=== PATIENT | female | born 1960 | race Caucasian/White ===

== ENCOUNTER 2018-06-05 11:18 | Emergency (ER) | payer MEDICAID ==
[~2018-06-05] VITALS: Ht 160 cm; Wt 108.9 kg
[2018-06-05 13:09] VITALS: BP 159/83
== END 2018-06-05 15:13 | disposition home or self-care (01) ==
LOC: ER 11:18 → EDBD 11:18 → ER 15:13
DX: S20.212A Contusion of left front wall of thorax, initial encounter (principal); J44.9 Chronic obstructive pulmonary disease, unspecified; F17.210 Nicotine dependence, cigarettes, uncomplicated; Z88.5 Allergy status to narcotic agent; V49.59XA Passenger injured in collision with other motor vehicles in traffic accident, initial encounter; Y93.89 Activity, other specified; Y99.8 Other external cause status; Y92.488 Other paved roadways as the place of occurrence of the external cause
CPT/HCPCS: 71046; 93005

== ENCOUNTER 2018-09-20 16:30 | Emergency (ER) | payer MEDICAID ==
[~2018-09-20] VITALS: Ht 160 cm; Wt 108.9 kg
[2018-09-20 16:35] VITALS: BP 129/86
[2018-09-20 18:03] LABS: Basophils # (auto) 0 uL; Basophils % (auto) 0.5 % (0.0-2.0); Eosinophils # (auto) 0.2 uL; Eosinophils % (auto) 2.3 % (0.0-7.0); Hematocrit 40.8 % (36.0-46.0); Hemoglobin 13.5 g/dL (12.2-16.2); Lymphocytes % (auto) 11.8 % (10.0-50.0); Mean Corpuscular Hemoglobin 30.9 pg (28.0-32.0); Mean Corpuscular Volume 93.6 fL (80.0-100.0); Monocytes # (auto) 0.5 uL; Monocytes % (auto) 6.2 % (0.0-12.0); Neutrophils % (auto) 79.2 % (37.0-80.0); Nucleated Red Blood Cells % 0.1 %; Platelet Count (auto) 248 10^3/uL (140-450); Red Blood Cells 4.36 10^6/uL (4.0-5.20); White Blood Cell 8.8 10^3/uL (4.4-10.8)
[2018-09-20 18:16] LABS: Alanine Aminotransferase 16 U/L (13-56); Albumin 3.6 g/dL (3.4-5.0); Anion Gap 5 (5-15); Blood Urea Nitrogen 17 mg/dL (7-18); Calcium 8.4 mg/dL (8.5-10.1); Carbon Dioxide 27 mmol/L (21-32); Chloride 109 mmol/L (98-107); Glucose 117 mg/dL (74-106); Potassium 3.9 mmol/L (3.5-5.1); Sodium 141 mmol/L (136-145)
[2018-09-20 18:21] LABS: Alkaline Phosphatase 86 U/L (45-117); Aspartate Aminotransferase 12 U/L (15-37); BUN/Creatinine Ratio 16.2; Bilirubin, Total 0.2 mg/dL (0.2-1.0); GFR African American 69 mL/min; GFR Non-African American 57 mL/min; Total Protein 7.1 g/dL (6.4-8.2)
[2018-09-20] MEDS ORDERED: LORazepam 2MG/ML-1ML VIAL IM ONE (22:45)
[2018-09-20] MEDS ORDERED: LACTULOSE 20Gm/30ML SOLN PO ONE (22:45)
== END 2018-09-20 23:55 | disposition home or self-care (01) ==
LOC: ER 16:30 → EDBD 16:30 → ER 23:55
DX: F41.9 Anxiety disorder, unspecified (principal); F45.8 Other somatoform disorders; K59.00 Constipation, unspecified; J44.9 Chronic obstructive pulmonary disease, unspecified; F17.210 Nicotine dependence, cigarettes, uncomplicated; Z88.5 Allergy status to narcotic agent
CPT/HCPCS: 36415; 71045; 74018; 80053; 84484; 85025; 96372; 99284; J2060

== ENCOUNTER 2021-09-19 21:43 | Emergency (ER) | payer MEDICAID ==
[~2021-09-19] VITALS: Ht 160 cm; Wt 120.7 kg
[2021-09-19 23:02] LABS: Basophils # (auto) 0.1 10 ^3/uL (0-0.2); Basophils % (auto) 1.1 % (0.0-2.0); Eosinophils # (auto) 0.2 10 ^3/uL (0-0.8); Eosinophils % (auto) 2.9 % (0.0-7.0); Hematocrit 36.3 % (36.0-46.0); Lymphocytes # (auto) 1.6 10 ^3/uL (0.4-5.4); Lymphocytes % (auto) 20.2 % (10.0-50.0); Mean Corpuscular Hgb Conc. 33.1 g/dL (32.0-36.0); Mean Corpuscular Volume 87.5 fL (80.0-100.0); Monocytes # (auto) 0.7 10 ^3/uL (0-1.3); Monocytes % (auto) 8.6 % (0.0-12.0); Neutrophils # (auto) 5.2 10 ^3/uL (1.6-8.6); Neutrophils % (auto) 67.2 % (37.0-80.0); Red Blood Cells 4.15 10^6/uL (4.0-5.20); Red Cell Distribution Width 14.2 % (11.8-14.3); White Blood Cell 7.7 10^3/uL (4.4-10.8)
[2021-09-19 23:24] LABS: Calcium 8.4 mg/dL (8.5-10.1); Potassium 3.4 mmol/L (3.5-5.1)
[2021-09-19 23:30] LABS: BUN/Creatinine Ratio 13.2; Bilirubin, Total 0.2 mg/dL (0.2-1.0); Total Protein 6.4 g/dL (6.4-8.2)
[2021-09-19] MEDS ORDERED: SODIUM CHLORIDE 0.9% 1,000 ML IV ONE ×2 (23:30)
[2021-09-20 00:30] VITALS: BP 102/56
== END 2021-09-20 01:32 | disposition home or self-care (01) ==
LOC: EDBD 21:43 → ER 21:45
DX: I95.9 Hypotension, unspecified (principal); T46.5X5A Adverse effect of other antihypertensive drugs, initial encounter; F17.200 Nicotine dependence, unspecified, uncomplicated; J44.9 Chronic obstructive pulmonary disease, unspecified; R06.02 Shortness of breath; Z88.6 Allergy status to analgesic agent
CPT/HCPCS: 36415; 71045; 80053; 83880; 84484; 85025; 93005; 96360; 96361; 99285; J7030

== ENCOUNTER 2023-04-07 21:25 | Emergency (ER) | payer MEDICAID ==
[~2023-04-07] VITALS: Ht 160 cm; Wt 123.6 kg
[2023-04-08 01:42] LABS: Basophils # (auto) 0.1 10 ^3/uL (0-0.2); Eosinophils # (auto) 0.5 10 ^3/uL (0-0.8); Lymphocytes # (auto) 2.2 10 ^3/uL (0.4-5.4); Lymphocytes % (auto) 22.8 % (10.0-50.0); Neutrophils # (auto) 6.1 10 ^3/uL (1.6-8.6); White Blood Cell 9.5 10^3/uL (4.4-10.8)
[2023-04-08 01:44] LABS: Eosinophils % (auto) 5.4 % (0.0-7.0); Hematocrit 36.7 % (36.0-46.0); Hemoglobin 11.7 g/dL (12.2-16.2); Mean Corpuscular Hemoglobin 25.6 pg (28.0-32.0); Mean Corpuscular Hgb Conc. 31.7 g/dL (32.0-36.0); Mean Corpuscular Volume 80.8 fL (80.0-100.0); Monocytes # (auto) 0.6 10 ^3/uL (0-1.3); Monocytes % (auto) 6.8 % (0.0-12.0); Red Blood Cells 4.55 10^6/uL (4.0-5.20); Red Cell Distribution Width 16.5 % (11.8-14.3)
[2023-04-08 02:22] LABS: Albumin 3.4 g/dL (3.4-5.0); Calcium 8.4 mg/dL (8.5-10.1); Potassium 3.8 mmol/L (3.5-5.1)
[2023-04-08 02:25] LABS: BUN/Creatinine Ratio 13.7 (10.0-20.0)
[2023-04-08 02:35] LABS: Bilirubin, Total 0.2 mg/dL (0.2-1.0); Total Protein 7.7 g/dL (6.4-8.2)
[2023-04-08] MEDS ORDERED: cefTRIAXone SOD 1,000 MG VL IM ONE (04:15)
[2023-04-08 04:50] VITALS: BP 119/60
[2023-04-08] MEDS ORDERED: DOXY1CAP57 PO (05:04)
[2023-04-08] MEDS ORDERED: FLUC150T38 PO (05:04)
== END 2023-04-08 05:00 | disposition home or self-care (01) ==
LOC: ER 21:25
DX: B37.2 Candidiasis of skin and nail (principal); L03.90 Cellulitis, unspecified; D64.9 Anemia, unspecified; F41.9 Anxiety disorder, unspecified; F17.210 Nicotine dependence, cigarettes, uncomplicated; Z88.5 Allergy status to narcotic agent
CPT/HCPCS: 36415; 71045; 80053; 83880; 84484; 85025; 96372; 99284; J0696

== ENCOUNTER 2024-11-21 15:27 | Emergency (ER) | payer MEDICAID ==
[~2024-11-21] VITALS: Ht 160 cm; Wt 106.8 kg
[~2024-11-21 15:27] MED LIST: DOXY1CAP57 PO; FLUC150T38 PO
[2024-11-21 15:52] VITALS: BP 117/62; PULSE 96; RESP 20; O2SAT 95
[2024-11-21] MEDS ORDERED: CLAR1TAB21 PO (16:56)
[2024-11-21] MEDS ORDERED: CLOB0.055 TOP (16:56)
--- NOTE | 2024-11-21 16:56 | ED.PDOC ---
History of Present Illness(SKN HPI Comments Patient is a pleasant but severely morbidly obese 64-year-old female who arrives the ED today for evaluation of chronic skin concerns. Patient has had rashing underneath her breasts, in her groin and underneath the axilla as well as her belly for over a year. Patient was seen her primary care provider, web specialist and vulcan crewmember. Patient arrives today stating the treatment is not been successful. Patient can not recall all the medication she has utilize. Patient denies any fever nausea or vomiting. Vitals were stable on arrival. Chief Complaint: Rash Time Seen by MD: 16:27 Primary Care Provider: TEREZA History of Present Illness: Nurses Notes Allergies: Coded Allergies: Codeine (Verified Allergy, Severe, 06/05/18) Home Meds Active Scripts Doxycycline Monohydrate (Doxycycline Monohydrate) 100 Mg Cap, 100 MG PO BID for 10 Days, #20 CAP Prov:MARBELLA BEDOLLA DO 04/08/23 Fluconazole (Diflucan) 150 Mg Tab, 150 MG PO DAILY for 5 Days, #5 TAB Prov:MARBELLA BEDOLLA DO 04/08/23 Information Source: Patient Mode of Arrival: Ambulatory Severity: Moderate Timing: Months Duration: Since onset Prehospital treatment: Treatment Location: Abdomen, Foot, Other (Groin, axilla, inferior breast) Mechanism: Spontaneous Onset Object: None Condition of Object: None Tetanus: UTD History of: Diabetes Associated Signs and Symptoms: Redness, Swelling Past Medical History PAST MEDICAL HISTORY: Anxiety, Cancer, COPD Past Medical History (Other): Patient has a one year chronic dermatitis condition that has not resolved after numerous treatments Surgical History: Denies all surgeries ANIMAL SKINNER History: No Pertinent ANIMAL SKINNER History Family History Family History: Unobtainable Social History Smoker: Greater Than 1 Pack/Day Alcohol: Occasionally Drugs: Denies Drug Use Lives In: Home Constitutional: denies: chills, diaphoresis, fatigue, fever, malaise, sweats, weakness, others EENTM: denies: blurred vision, double vision, ear bleeding, ear discharge, ear drainage, ear pain, ear ringing, eye pain, eye redness, hearing loss, mouth pain, mouth swelling, nasal discharge, nose bleeding, nose congestion, nose pain, photophobia, tearing, throat pain, throat swelling, voice changes, others Respiratory: denies: cough, hemoptysis, orthopnea, SOB at rest, shortness of breath, SOB with excertion, stridor, wheezing, others Cardiovascular: denies: chest pain, dizzy spells, diaphoresis, Dyspnea on exertion, edema, irregular heart beat, left arm pain, lightheadedness, palpitations, PND, syncope, others Gastrointestinal: denies: abdomen distended, abdominal pain, blood streaked bowels, constipated, diarrhea, dysphagia, difficulty swallowing, hematemesis, melena, nausea, poor appetite, poor fluid intake, rectal bleeding, rectal pain, vomiting, others Genitourinary: denies: abnormal vagina bleeding, burning, dyspareunia, dysuria, flank pain, frequency, hematuria, incontinence, pain, , vagina discharge, urgency, others Neurological: denies: dizziness, fainting, headache, left sided numbness, left sided weakness, numbness, paresthesia, pre-existing deficit, right sided numbness, right sided weakness, seizure, speech problems, tingling, tremors, weakness, others Musculoskeletal: denies: back pain, gout, joint pain, joint swelling, muscle pain, muscle stiffness, neck pain, others Integumetry: reports: rash (Rash to bilateral axilla, bilateral inferior breast, chest, abdomen, groin, leg); denies: bruises, change in color, change in hair/nails, dryness, laceration, lesions, lumps, wounds, others Allergic/Immunocompromised: denies: Difficulty Healing, Frequent Infections, Hives, Itching, others Hematologic/Lymphatic: denies: anemia, blood clots, easy bleeding, easy bruising, swollen glands, others Endocrine: denies: excessive hunger, excessive sweating, excessive thirst, excessive urination, flushing, intolerance to cold, intolerance to heat, unexplained weight gain, unexplained weight loss, others Psychiatric: denies: anxiety, bipolar disorder, depression, hopeless, panic disorder, schizophrenia, sleepless, suicidal, others Physical Exam General Appearance: Moderate Distress (Moderate distress due to rash concerns.), Obese HEENT: Normal ENT Inspection, Pharynx Normal, TMs Normal Neck: Full Range of Motion, Non-Tender, Normal, Normal Inspection Respiratory: Chest Non-Tender, Lungs Clear, No Accessory Muscle Use, No Respiratory Distress, Normal Breath Sounds Cardiovascular: No Edema, No JVD, No Murmur, No Gallop, Normal Peripheral Pulses, Regular Rate/Rhythm Breast Exam: Deferred Gastrointestinal: No Organomegaly, Non Tender, No Pulsatile Mass, Normal Bowel Sounds, Soft Genitalia: Deferred Pelvic: Deferred Rectal: Deferred Extremities: No calf tenderness, Normal capillary refill, Normal inspection, Normal range of motion, Non-tender, No pedal edema Neurologic: Alert, manager intelligence II-XII nml as Tested, No Motor Deficits, Normal Affect, Normal Mood, No Sensory Deficits Cerebellar Function: Normal Reflexes: Normal Skin: Dry, Normal Color, Warm, Other (Patient displays a global erythematous and plaque like rashing concern throughout bilateral axilla, chest, inferior breast, abdomen, groin in the legs. Rash has different levels of regression with some weeping noted. Localized erythema with mild edema.) Lymphatic: No Adenopathy Was a procedure done? Was a procedure done?: No Differential Diagnosis (INTG) Differential Diagnosis: Other (Skin infection, fungal infection, dermatitis, psoriasis, eczema) X-Ray, Labs, Meds, VS Vital Signs Date Time Temp Pulse Resp B/P (MAP) Pulse Ox O2 Delivery O2 Flow Rate FiO2 11/21/24 15:52 99.1 96 20 117/62 (80) 95 X-Ray, Labs, Meds, VS Comment Spent extensive time discussing the patient's concerns with her. Advised that is I can give a general medication to address of generalized dermatitis, but the patient is seeing all the specialists that she needs to to treat and manage her long-term skin conditions. Advise utilizing medication as directed and follow up with vulcan crewmember for either scrape or punch biopsy evaluation. Time of 1ST Reevaluation: 16:53 Reevaluation 1ST: Unchanged Consultation: PCP, Other (Resident Care Assistant) Patient Education/Counseling: Diagnosis, Treatment Family Education/Counseling: Diagnosis, Treatment Departure 1 Departure Time of Disposition: 16:53 Impression: Primary Impression: Dermatitis Disposition: 01 HOME / SELF CARE / HOMELESS Condition: Stable Additional Instructions: Advise utilizing medication as directed and additionally, follow up with primary care provider and vulcan crewmember for continued evaluation and management of her chronic rash concerns. e-Prescriptions Clarithromycin (Clarithromycin) 500 Mg Tab 1 TAB PO BID for 10 Days, #20 TAB Prov: MEEK MONTOYA PAC 11/21/24 Clobetasol Propionate (Clobetasol Propionate) 0.05 % Cre 1 APPLIC TOP BID, #60 GRAMS 2 Refills Prov: MEEK MONTOYA PAC 11/21/24 Discharged With: Self, Friend Critical Care Note Critical Care Time?: No Stability Stability form required: No Heart Score Heart Score: Heart Score Response (Comments) Value History N/A 0 EKG N/A 0 Age N/A 0 Risk Factors N/A 0 Troponin N/A 0 Total 0 MEEK MONTOYA PAC Nov 21, 2024 16:56
== END 2024-11-21 20:40 | disposition home or self-care (01) ==
LOC: ER 15:27
DX: L30.9 Dermatitis, unspecified (principal); F41.9 Anxiety disorder, unspecified; J44.9 Chronic obstructive pulmonary disease, unspecified; F17.210 Nicotine dependence, cigarettes, uncomplicated; E66.01 Morbid (severe) obesity due to excess calories; Z88.5 Allergy status to narcotic agent

== ENCOUNTER 2025-01-07 11:30 | Emergency (ER) | payer OTHER, MEDICARE, MEDICAID ==
[~2025-01-07] VITALS: Ht 160 cm; Wt 104.5 kg
[~2025-01-07 11:30] MED LIST changes: +CLAR1TAB21 PO; +CLOB0.055 TOP
[2025-01-07 11:51] VITALS: BP 130/81; PULSE 90; RESP 17; TEMP 97.5; O2SAT 97
--- NOTE | 2025-01-07 13:16 | ED.PDOC ---
[place]. 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 FELL FROM LAST STEP. Occurred three days ago. No associated symptoms Chief Complaint: Fall Injury Time Seen by MD: 12:18 Primary Care Provider: TEREZA Allergies: Coded Allergies: Codeine (Verified Allergy, Severe, 06/05/18) Home Meds Active Scripts Clarithromycin (Clarithromycin) 500 Mg Tab, 1 TAB PO BID for 10 Days, #20 TAB Prov:MEEK MONTOYA PAC 11/21/24 Clobetasol Propionate (Clobetasol Propionate) 0.05 % Cre, 1 APPLIC TOP BID, #60 GRAMS 2 Refills Prov:MEEK MONTOYA PAC 11/21/24 Doxycycline Monohydrate (Doxycycline Monohydrate) 100 Mg Cap, 100 MG PO BID for 10 Days, #20 CAP Prov:MARBELLA BEDOLLA DO 04/08/23 Fluconazole (Diflucan) 150 Mg Tab, 150 MG PO DAILY for 5 Days, #5 TAB Prov:MARBELLA BEDOLLA DO 04/08/23 Mode of Arrival: Ambulatory Past Medical History PAST MEDICAL HISTORY: Anxiety, Cancer, COPD Surgical History: Denies all surgeries PEST CONTROL SPECIALIST History: No Pertinent PEST CONTROL SPECIALIST History Family History Family History: Unobtainable Social History Smoker: Greater Than 1 Pack/Day Alcohol: Occasionally Drugs: Denies Drug Use Lives In: Home All Other Systems: Reviewed and Negative (per hpi) Physical Exam General Appearance: No Apparent Distress, Normal HEENT: Normal ENT Inspection, Pharynx Normal, TMs Normal Neck: Full Range of Motion, Non-Tender, Normal, Normal Inspection Respiratory: Chest Non-Tender, Lungs Clear, No Accessory Muscle Use, No Respiratory Distress, Normal Breath Sounds Cardiovascular: No Edema, No JVD, No Murmur, No Gallop, Normal Peripheral Pulses, Regular Rate/Rhythm, Other (L rib: normal on inspection) Breast Exam: Deferred Gastrointestinal: No Organomegaly, Non Tender, No Pulsatile Mass, Normal Bowel Sounds, Soft Genitalia: Deferred Pelvic: Deferred Rectal: Deferred Extremities: No calf tenderness, Normal capillary refill, Normal inspection, Normal range of motion, Non-tender, No pedal edema Musculoskeletal : Apperance: Normal Neurologic: Alert, html developer II-XII nml as Tested, No Motor Deficits, Normal Affect, Normal Mood, No Sensory Deficits Cerebellar Function: Normal Reflexes: Normal Skin: Dry, Normal Color, Warm Lymphatic: No Adenopathy Was a procedure done? Was a procedure done?: No Differential Diagnosis Multiple Trauma: Fractures, Contusion X-Ray, Labs, Meds, VS Vital Signs Date Time Temp Pulse Resp B/P (MAP) Pulse Ox O2 Delivery O2 Flow Rate FiO2 01/07/25 11:51 97.5 90 17 130/81 (97) 97 97.5 X-Ray, Labs, Meds, VS Comment Disposition: Discharge. Strict return precautions discussed with the patient with full understanding. Supportive care advised (rest, ice, heat, NSAIDs, stretching exercises) Massage muscles with cold pack or ice for 20 minutes 4 times per day. Usually most useful if there is swelling during the first 48 hours Heating pad on the most painful area for 20 minutes to relieve muscle spasm Sleep and the most comfortable sleeping position (usually on the side with knees bent) Light stretching, no strenuous activity, avoid frequent bending, avoid carrying heavy objects On reevaluation, patient had symptomatic improvement. Patient is stable for discharge at this time. External notes reviewed. Test results and diagnostic imaging interpreted. All diagnostic findings, discharge care, education and instructions provided Follow-up with PCP in 2 to 3 days Patient verbalized understanding and agreed to treatment plan Vital signs stable, afebrile, no acute distress noted Patient ambulatory with strong steady gait Advised to return precautions for any new or worsening symptoms, return to ER immediately for re-evaluation Patient is aware that the purpose of this visit was for an acute medical emergency requiring emergent stabilization. Chronic conditions, including malignancies have not been ruled out. Patient is instructed to follow up with P CP as directed and discharge instructions for continued care and workup. If unable to arrange follow-up, patient is to return to the emergency department for reassessment. Patient (parent or legal guardian if applicable) was given verbal and written discharge instructions and acknowledges understanding. Time of 1ST Reevaluation: 14:18 Reevaluation 1ST: Improved Patient Education/Counseling: Diagnosis, Treatment Family Education/Counseling: Diagnosis, Treatment Departure 1 Departure Time of Disposition: 14:18 Impression: Primary Impression: Rib pain on left side Disposition: HOME / SELF CARE / HOMELESS Condition: Stable e-Prescriptions Lidocaine (LIDODERM 5% TOPICAL PATCH) 1 Patch Ph 1 PATCH TOP DAILY for 30 Days, #30 PATCH 0 Refills Prov: MARGARITA TROY MANIFOLD BUILDER 01/07/25 Critical Care Note Critical Care Time?: No Stability Stability form required: No Heart Score Heart Score: Heart Score Response (Comments) Value History N/A 0 EKG N/A 0 Age N/A 0 Risk Factors N/A 0 Troponin N/A 0 Total 0 MARGARITA TROY NP Jan 07, 2025 13:16
--- NOTE | 2025-01-07 14:03 | DVH ---
EXAMINATION: XY L RIB X RAY INDICATION: FALL/ R/O FRACTURE COMPARISON: None TECHNIQUE: Frontal view of the chest and 4 views of the LEFT ribs history FINDINGS: No focal consolidation, pleural effusion or significant pneumothorax. Normal cardiomediastinal silhou ette. No displaced LEFT rib fracture. IMPRESSION: No acute cardiopulmonary disease. No displaced LEFT rib fracture.
[2025-01-07] MEDS ORDERED: LIDO5DIS21 TOP (14:19)
== END 2025-01-07 14:28 | disposition home or self-care (01) ==
LOC: ER 11:30
DX: R07.81 Pleurodynia (principal); R07.89 Other chest pain; F41.9 Anxiety disorder, unspecified; J44.9 Chronic obstructive pulmonary disease, unspecified; F17.210 Nicotine dependence, cigarettes, uncomplicated; Z88.5 Allergy status to narcotic agent; W10.8XXA Fall (on) (from) other stairs and steps, initial encounter; Y93.89 Activity, other specified; Y92.89 Other specified places as the place of occurrence of the external cause; Y99.8 Other external cause status
CPT/HCPCS: 71101

== ENCOUNTER 2025-08-29 15:12 | Inpatient (IN) | payer OTHER, MEDICAID ==
[~2025-08-29] VITALS: Ht 160 cm; Wt 105.2 kg
[~2025-08-29 15:12] MED LIST changes: +LIDO5DIS21 TOP
--- NOTE | 2025-08-29 15:28 | ECG ---
[facility] Test Date: 2025-08-29 Test Time: 15:27:23 Pat Name: KAYLEEN LIAO Department: ED Room: 0215T Gender: F Human Projectile: RITO : 1960 Requested By: BECKA CABEZAS Order Number: [id number] Reading MD: Donny Stanley Measurements Intervals [place] Rate: 93 P: 77 OK: 173 QRS: 93 QRSD: 95 T: 32 QT: 368 QTc: 458 Interpretive Statements Sinus rhythm Right axis deviation Low voltage, precordial leads Borderline T abnormalities, anterior leads Electronically Signed On 09-02-2025 14:58:39 PST by Donny Stanley Please click the below link to view image of tracing.
--- NOTE | 2025-08-29 16:24 | ED.PDOC ---
SOB-HPI HPI Comments 65 y.o female with PMHx of COPD, presents to the ED for a chief complaint of SOB associated with a productive cough that has been ongoing since July 2025. Patient reports being seen at [facility] on 07/20/25 for c/o but states since, no alleviating factors and symptoms have worsened. Patient was seen today at another urgent care and sent to the ED due to SPO2 of 85% RA. She is not on any home oxygen. She has been using her nebulizer at home. She denies any chest pain, fever, chills. Chief Complaint: Shortness of Breath Time Seen by MD: 15:45 Primary Care Provider: TEREZA Mode of Arrival: Ambulatory Past Medical History PAST MEDICAL HISTORY: Anxiety, Cancer, COPD Surgical History (Other): Lumpectomy CARTON COUNTER FEEDER History: No Pertinent CARTON COUNTER FEEDER History Family History Family History: Unobtainable Social History Smoker: Greater Than 1 Pack/Day Alcohol: Occasionally Drugs: Denies Drug Use Lives In: Home Physical Exam General Appearance: Moderate Distress HEENT: Normal ENT Inspection, Pharynx Normal, TMs Normal Neck: Full Range of Motion, Non-Tender, Normal, Normal Inspection Respiratory: Respiratory Distress, Wheezing Cardiovascular: No Edema, No JVD, No Murmur, No Gallop, Normal Peripheral Pulses, Regular Rate/Rhythm Breast Exam: Deferred Gastrointestinal: No Organomegaly, Non Tender, No Pulsatile Mass, Normal Bowel Sounds, Soft Genitalia: Deferred Pelvic: Deferred Rectal: Deferred Extremities: No calf tenderness, Normal capillary refill, Normal inspection, Normal range of motion, Non-tender, No pedal edema Musculoskeletal : Apperance: Normal Neurologic: Alert, No Motor Deficits, No Sensory Deficits Cerebellar Function: NOT DONE Reflexes: NOT DONE Skin: Dry, Normal Color, Warm Peripheral Pulses: 3+ Radial (R), 3+ Radial (L) Lymphatic: No Adenopathy Was a procedure done? Was a procedure done?: No Differential Dx Differential Diagnosis: Anxiety, Asthma, Bronchitis X-Ray, Labs, Meds, VS Vital Signs Date Time Temp Pulse Resp B/P (MAP) Pulse Ox O2 Delivery O2 Flow Rate FiO2 08/29/25 17:47 16 95 Room Air* 0 21 08/29/25 15:27 93 08/29/25 15:14 98.6 101 20 175/79 92 98.6 Lab Test 08/29/25 17:27 08/29/25 16:26 08/29/25 16:23 Range/Units Troponin I High Sensitivity Pending < 3 L </=34 ng/L White Blood Count 11.7 H 4.4-10.8 10^3/uL Red Blood Count 4.64 4.0-5.20 10^6/uL Hemoglobin 13.4 12.2-16.2 g/dL Hematocrit 40.3 36.0-46.0 % Mean Corpuscular Volume 86.9 80.0-100.0 fL Mean Corpuscular Hemoglobin 28.8 28.0-32.0 pg Mean Corpuscular Hemoglobin Concent 33.2 32.0-36.0 g/dL Red Cell Distribution Width 14.4 H 11.8-14.3 % Platelet Count 341 140-450 10^3/uL Mean Platelet Volume 6.9 6.9-10.8 fL Neutrophils (%) (Auto) 68.2 37.0-80.0 % Lymphocytes (%) (Auto) 21.9 10.0-50.0 % Monocytes (%) (Auto) 6.5 0.0-12.0 % Eosinophils (%) (Auto) 3.0 0.0-7.0 % Basophils (%) (Auto) 0.4 0.0-2.0 % Neutrophils # (Auto) 7.9 1.6-8.6 10 ^3/uL Lymphocytes # (Auto) 2.5 0.4-5.4 10 ^3/uL Monocytes # (Auto) 0.8 0-1.3 10 ^3/uL Eosinophils # (Auto) 0.4 0-0.8 10 ^3/uL Basophils # (Auto) 0 0-0.2 10 ^3/uL Nucleated Red Blood Cells 0.0 % Sodium Level 140 136-145 mmol/L Potassium Level 4.0 3.5-5.1 mmol/L Chloride Level 103 98-107 mmol/L Carbon Dioxide Level 29 20-31 mmol/L Anion Gap 8 5-15 Blood Urea Nitrogen 11 9-23 mg/dL Creatinine 0.85 0.550-1.02 mg/dL Glomerular Filtration Rate Calc 76 >90 mL/min BUN/Creatinine Ratio 12.9 10.0-20.0 Serum Glucose 86 74-106 mg/dL Calcium Level 9.4 8.7-10.4 mg/dL B-Type Natriuretic Peptide 8.03 0-100 pg/mL Urine Color Colorless Yellow Urine Clarity Clear Clear Urine pH 6.0 5.0-9.0 Urine Specific [place] 1.005 1.001-1.035 Urine Protein Negative Negative Urine Ketones Negative Negative Urine Blood Negative Negative /uL Urine Nitrite Negative Negative Urine Bilirubin Negative Negative Urine Urobilinogen Normal Negative mg/dL Urine Leukocyte Esterase 1+ Negative /uL Urine RBC <1 0 - 4 /hpf Urine Microscopic WBC 4 0-5 /HPF Urine Squamous Epithelial Cells Few <5 /hpf Urine Bacteria None seen None Seen /hpf Urine Glucose Normal Normal mg/dL Current Medications Medications (Trade) Dose Ordered Sig/Mariano Route Start Time Stop Time Status Last Admin Albuterol (Ventolin Medneb) 5 mg ONCE ONCE NEB 08/29/25 17:30 08/29/25 17:31 DC 08/29/25 17:46 Ipratropium [place] (Atrovent Medneb) 0.5 mg ONCE ONCE NEB 08/29/25 17:30 08/29/25 17:31 DC 08/29/25 17:46 Patient alert. Came in because of shortness a breath. Vitals stable. Answering questions. Cardiac marker within normal limits. WBC slightly elevated. Blood pressure elevated. COPD exacerbation. Was given steroid. Was given breathing treatment. Explained to the patient. Continue monitoring. Time of 1ST Reevaluation: 17:20 Reevaluation 1ST: Unchanged Patient Education/Counseling: Diagnosis, Treatment, Prognosis Family Education/Counseling: No Family Present SEPSIS Sepsis Screen Date sepsis recognized/suspect: Aug 29, 2025 Time Sepsis recognized/suspect: 1517 Recent Procedure: No On Antibiotic Therapy: No Respiratory Rate >20: No Heart Rate >90: Yes Temp<36 C (96.8 F) or >38.3 C: No SBP <90 or MAP <65 mmHG: No New Acute Mental Status Change: No Is the patient on CPAP, BIPAP,: No Physician Orders Chest Portable (08/29/25 16:20) Troponin-I Hs (08/29/25 17:20) Troponin-I Hs (08/29/25 19:20) Vital Signs Date Time Temp Pulse Resp B/P (MAP) Pulse Ox O2 Delivery O2 Flow Rate FiO2 08/29/25 17:47 16 95 Room Air* 0 21 08/29/25 15:27 93 08/29/25 15:14 98.6 101 20 175/79 92 98.6 Laboratory Tests Test 08/29/25 16:26 White Blood Count 11.7 10^3/uL (4.4-10.8) H Medications Medications Dose Ordered Sig/Mariano Route Start Time Stop Time Status Last Admin Dose Admin Albuterol 5 mg ONCE ONCE NEB 08/29/25 17:30 08/29/25 17:31 DC 08/29/25 17:46 Ipratropium [place] 0.5 mg ONCE ONCE NEB 08/29/25 17:30 08/29/25 17:31 DC 08/29/25 17:46 Departure 1 Departure Time of Disposition: 17:20 Impression: Primary Impression: COPD exacerbation Additional Impression: Hypertensive urgency Disposition: ADMITTED INPATIENT Admit to: Med Surg Condition: Guarded Critical Care Note Critical Care Time?: Yes (90 min-critical care time only) Stability Stability form required: No Heart Score Heart Score: Heart Score Response (Comments) Value History N/A 0 EKG N/A 0 Age N/A 0 Risk Factors N/A 0 Troponin N/A 0 Total 0 I personally scribed for BECKA CABEZAS MD ([email or web address]) on 08/29/25 at 16:24. Electronically submitted by Mackenzie Mackenzie ([facility]). BECKA CABEZAS MD Aug 29, 2025 16:24
[2025-08-29 16:39] LABS: Hematocrit 40.3 % (36.0-46.0); Hemoglobin 13.4 g/dL (12.2-16.2); Mean Corpuscular Hemoglobin 28.8 pg (28.0-32.0); Mean Corpuscular Volume 86.9 fL (80.0-100.0); Nucleated Red Blood Cells % 0.0 %
[2025-08-29 16:47] LABS: Chloride 103 mmol/L (98-107); Potassium 4.0 mmol/L (3.5-5.1); Sodium 140 mmol/L (136-145)
[2025-08-29 16:48] LABS: Anion Gap 8 (5-15); Calcium 9.4 mg/dL (8.7-10.4); Carbon Dioxide 29 mmol/L (20-31)
[2025-08-29 16:53] LABS: BUN/Creatinine Ratio 12.9 (10.0-20.0); Blood Urea Nitrogen 11 mg/dL (9-23); Glucose 86 mg/dL (74-106)
--- NOTE | 2025-08-29 17:00 | DVH ---
CHEST RADIOGRAPH Indication: sob Technique: Single frontal view of the chest was obtained Comparison: XY CHEST XRAY 1 VIEW on DOS: 04/08/23, CHEST PORTABLE on DOS: 09/30/22, CXRP on DOS: 09/30/22 FINDINGS: Lines and Tubes: None Lungs: Obscuration of the left hemidiaphragm. Mild interstitial prominence. No pneumothorax. Cardiomediastinal contours: Borderline cardiomegaly Bones: No acute osseous abnormality. Nonspecific foci of hyperdensity over the left axillary region.. IMPRESSION: Mild pulmonary vascular congestion. Obscuration of the left hemidiaphragm which may be from overlying cardiac silhouette. Underlying trace effusion/ atelectasis can not be excluded.
[2025-08-29 17:40] LABS: Urine Protein, UAD Negative (Negative)
[2025-08-29] MEDS: ALBUTEROL SULF 2.5 MG/0.5ML(0.5%) NEB SOLN NEB ONE (17:46)
[2025-08-29] MEDS: IPRATROPIUM BROM 0.5 MG/2.5ML INH SOL NEB ONE (17:46)
[2025-08-29] MEDS: methylPREDNISolone SOD SUCC 125 MG/2 ML VL IV ONE (18:31)
[2025-08-29] MEDS ORDERED: ONDANSETRON HCL 4 MG/2 ML VIAL IV PRN (20:00)
[2025-08-29] MEDS ORDERED: DOCUSATE SOD 100 MG CAP PO PRN (20:00)
[2025-08-29] MEDS ORDERED: ACETAMINOPHEN 325 MG TAB PO PRN (20:00)
[2025-08-29] MEDS: methylPREDNISolone SOD SUCC 40 MG/ML VL IV SCH (20:31)
--- NOTE | 2025-08-29 21:34 | DVHHP2 ---
History of Present Illness Reason for Visit: COPD with acute exacerbation History of Present Illness The patient is a 65-year-old female with past medical history of cancer, anxiety, and COPD who presented to [facility] ED with complaint of shortness of breaths. Patient reports that she has been experiencing difficulty breathing associated with productive cough for the past 1 month. She reports being seen at [place] urgent [facility] on 07/20/25 for same symptoms, but no alleviating factors and have worsened. Patient was seen today at another urgent care and was sent here to the ED due to SPO2 of 85% on room air. Patient is not on any home oxygen, has been using her nebulizer at home. Patient was seen and evaluated in the ED, laboratory data shows WBC 11.7, platelets 341, sodium 140, potassium 4.0, BUN 11, creatinine 0.85, GFR 76, glucose 86, calcium 9.4, BNP 8.03, troponin < 3, blood pressure 175/79 trending down to 112/58, heart rate 86, temperature 98.5 F, O2 saturation 95% on oxygen. Urinalysis positive for urinary tract infection. Please see medication orders section in the computer. On my assessment, patient denied chest pain, no dizziness, headache, diaphoresis, currently on oxygen, no diarrhea, nausea, vomiting, fever, no chills. Patient was admitted for further evaluation and medical management. Past Medical History Anxiety, Cancer, COPD Past Surgical History Lumpectomy Family History Reviewed, noncontributory to the management of this case. Past Social History The patient lives at home, denies smoking, alcohol or illicit drugs abuse. Review of Systems Constitutional: Yes: Weakness; No: Fever, Chills, Sweats, Malaise, Other Eyes: No: Pain, Vision change, Conjunctivae inflammation, Eyelid inflammation, Other, Redness ENT: No: Ear pain, Ear discharge, Nose pain, Nose discharge, Nose congestion, Mouth pain, Mouth swelling, Throat pain, Throat swelling, Other Respiratory: Cough, Shortness of breath, Other (SOB at rest); No: Dry, SOB with excertion, Wheezing, Hemoptysis, Pleuritic Pain, Sputum, Wheezing Cardiovascular: No: Chest Pain, Palpitations, Orthopnea, Paroxysmal Noc. Dyspnea, Edema, Lt Headedness, Other Gastrointestinal: No: Nausea, Vomiting, Abdominal Pain, Diarrhea, Constipation, Melena, Hematochezia, Other Genitourinary: No Dysuria, No Frequency, No Incontinence, No Hematuria, No Retention, No Other Musculoskeletal: No: other, neck pain, shoulder pain, arm pain, back pain, hand pain, leg pain, foot pain Skin: No: Rash, Lesions, Jaundice, Bruising, Other Neurological: No: Weakness, Numbness, Incoordination, Change in speech, Confusion, Seizures, Other Allergies: Coded Allergies: Codeine (Verified Allergy, Severe, 06/05/18) Medications Current Medications Medications Dose Ordered Sig/Mariano Route Start Time Stop Time Status Last Admin Dose Admin Albuterol 2.5 mg Q4HPRN PRN NEB 08/29/25 20:00 Ipratropium Likely 0.5 mg Q4HPRN PRN NEB 08/29/25 20:00 Clonidine HCl 0.1 mg Q4HP PRN PO 08/29/25 20:00 Famotidine 20 mg Q12HR IV 08/29/25 22:00 Methylprednisolone Sodium Succinate 40 mg Q8HR IV 08/29/25 00:00 Ceftriaxone Sodium 50 ml @ 100 mls/hr DAILY@09 IV 08/30/25 09:00 Sodium Chloride 10 ml Q8HR IV 08/29/25 22:00 Ondansetron HCl 4 mg Q4HP PRN IV 08/29/25 20:00 Docusate Sodium 100 mg BIDPRN PRN PO 08/29/25 20:00 Acetaminophen 650 mg Q6HP PRN PO 08/29/25 20:00 Exam Vital Signs Vital Signs Date Time Temp Pulse Resp B/P (MAP) Pulse Ox O2 Delivery O2 Flow Rate FiO2 08/29/25 20:46 20 96 Room Air* 0 21 08/29/25 20:28 98.6 90 106/80 (89) 98.6 General Appearance: Alert, Oriented X3, Cooperative, No acute distress HEENT: Atraumatic, PERRLA, EOMI, Mucous membr. moist/pink Respiratory: Normal air movement, Other (Diminished breath sounds) Cardiovascular: Regular rate, Normal S1, Normal S2, No murmurs Abdominal: Normal bowel sounds, Soft, No tenderness, No hepatospenomegaly, No masses Extremities: No clubbing, No cyanosis, No edema, Normal pulses, No tenderness/swelling Skin: No rashes, No significant lesion Neuro: Normal speech, Normal tone, Sensation intact, Cranial nerves 3-12 NL, Reflexes 2+, Other (Generalized weakness) Psych/Mental Status: Mental status NL, Mood NL Labs/Xrays Labs Test 08/29/25 19:24 08/29/25 16:26 08/29/25 16:23 Range/Units Troponin I High Sensitivity < 3 L </=34 ng/L White Blood Count 11.7 H 4.4-10.8 10^3/uL Red Blood Count 4.64 4.0-5.20 10^6/uL Hemoglobin 13.4 12.2-16.2 g/dL Hematocrit 40.3 36.0-46.0 % Mean Corpuscular Volume 86.9 80.0-100.0 fL Mean Corpuscular Hemoglobin 28.8 28.0-32.0 pg Mean Corpuscular Hemoglobin Concent 33.2 32.0-36.0 g/dL Red Cell Distribution Width 14.4 H 11.8-14.3 % Platelet Count 341 140-450 10^3/uL Mean Platelet Volume 6.9 6.9-10.8 fL Neutrophils (%) (Auto) 68.2 37.0-80.0 % Lymphocytes (%) (Auto) 21.9 10.0-50.0 % Monocytes (%) (Auto) 6.5 0.0-12.0 % Eosinophils (%) (Auto) 3.0 0.0-7.0 % Basophils (%) (Auto) 0.4 0.0-2.0 % Neutrophils # (Auto) 7.9 1.6-8.6 10 ^3/uL Lymphocytes # (Auto) 2.5 0.4-5.4 10 ^3/uL Monocytes # (Auto) 0.8 0-1.3 10 ^3/uL Eosinophils # (Auto) 0.4 0-0.8 10 ^3/uL Basophils # (Auto) 0 0-0.2 10 ^3/uL Nucleated Red Blood Cells 0.0 % Sodium Level 140 136-145 mmol/L Potassium Level 4.0 3.5-5.1 mmol/L Chloride Level 103 98-107 mmol/L Carbon Dioxide Level 29 20-31 mmol/L Anion Gap 8 5-15 Blood Urea Nitrogen 11 9-23 mg/dL Creatinine 0.85 0.550-1.02 mg/dL Glomerular Filtration Rate Calc 76 >90 mL/min BUN/Creatinine Ratio 12.9 10.0-20.0 Serum Glucose 86 74-106 mg/dL Calcium Level 9.4 8.7-10.4 mg/dL B-Type Natriuretic Peptide 8.03 0-100 pg/mL Urine Color Colorless Yellow Urine Clarity Clear Clear Urine pH 6.0 5.0-9.0 Urine Specific [place] 1.005 1.001-1.035 Urine Protein Negative Negative Urine Ketones Negative Negative Urine Blood Negative Negative /uL Urine Nitrite Negative Negative Urine Bilirubin Negative Negative Urine Urobilinogen Normal Negative mg/dL Urine Leukocyte Esterase 1+ Negative /uL Urine RBC <1 0 - 4 /hpf Urine Microscopic WBC 4 0-5 /HPF Urine Squamous Epithelial Cells Few <5 /hpf Urine Bacteria None seen None Seen /hpf Urine Glucose Normal Normal mg/dL PATIENT: KAYLEEN LIAO DACCT: [id number] UNIT: [id number] : 1960 LOC: ER ROOM / BED: / AGE / SEX: 65 / F ADM STATUS: REG ER SERVICE 1620 ORDERING PHYSICIAN: BECKA CABEZAS MD PROCEDURE(s): CXRP - CHEST PORTABLE REASON: sob ORDER NUMBER(s): [id number], ACCESSION NUMBER(s): [id number] CHEST RADIOGRAPH Indication: sob Technique: Single frontal view of the chest was obtained Comparison: XY CHEST XRAY 1 VIEW on DOS: 04/08/23, CHEST PORTABLE on DOS: 09/30/22, CXRP on DOS: 09/30/22 FINDINGS: Lines and Tubes: None Lungs: Obscuration of the left hemidiaphragm. Mild interstitial prominence. No pneumothorax. Cardiomediastinal contours: Borderline cardiomegaly Bones: No acute osseous abnormality. Nonspecific foci of hyperdensity over the left axillary region.. IMPRESSION: Mild pulmonary vascular congestion. Obscuration of the left hemidiaphragm which may be from overlying cardiac silhouette. Underlying trace effusion/ atelectasis can not be excluded. SEPSIS Sepsis Screen Date sepsis recognized/suspect: Aug 29, 2025 Time Sepsis recognized/suspect: 1518 Recent Procedure: No On Antibiotic Therapy: No Respiratory Rate >20: No Heart Rate >90: Yes Temp<36 C (96.8 F) or >38.3 C: No SBP <90 or MAP <65 mmHG: No New Acute Mental Status Change: No Is the patient on CPAP, BIPAP,: No Physician Orders Chest Portable (08/29/25 16:20) Albuterol Medneb (Ventolin Medneb) (08/29/25 20:00) Ipratropium Medneb (Atrovent Medneb) (08/29/25 20:00) Clonidine Hcl Tablet (Catapres Tablet) (08/29/25 20:00) Famotidine Injection (Pepcid Injection) (08/29/25 22:00) Methylprednisolone Sod Succ (Solu Medrol (08/29/25 00:00) Ceftriaxone 1gm/50ml (Rocephin) (08/30/25 09:00) Allergies (08/29/25 19:58) Code Status (08/29/25 19:58) Sodium Chloride Lock (Saline Lock Ns) (08/29/25 22:00) Oxygen Per Hour (08/29/25 19:58) Ondansetron Hcl (Zofran) (08/29/25 20:00) Docusate Sodium Capsule (Colace Capsule) (08/29/25 20:00) Complete Blood Count (08/30/25 04:00) Comprehensive Metabolic Panel (08/30/25 04:00) Cardiac Diet-2gna,Lofat,Lochol (08/30/25 Breakfast) Condition: Serious (08/29/25 19:58) Acetaminophen Tablet (Tylenol Tablet) (08/29/25 20:00) Bedrest With Bathroom Privileg (08/29/25 19:58) Sequential Compression Device (08/29/25 ) Vital Signs Date Time Temp Pulse Resp B/P (MAP) Pulse Ox O2 Delivery O2 Flow Rate FiO2 08/29/25 20:46 20 96 Room Air* 0 21 08/29/25 20:28 98.6 90 20 106/80 (89) 93 98.6 08/29/25 18:59 98.5 86 19 111/58 (75) 93 98.5 08/29/25 17:58 111/58 08/29/25 17:47 16 95 Room Air* 0 21 08/29/25 15:27 93 08/29/25 15:14 98.6 101 20 175/79 92 98.6 Laboratory Tests Test 08/29/25 16:26 White Blood Count 11.7 10^3/uL (4.4-10.8) H Medications Medications Dose Ordered Sig/Mariano Route Start Time Stop Time Status Last Admin Dose Admin Albuterol 5 mg ONCE ONCE NEB 08/29/25 17:30 08/29/25 17:31 DC 08/29/25 17:46 5 MG Ceftriaxone Sodium 50 ml @ 100 mls/hr ONCE ONCE IV 08/29/25 20:00 08/29/25 20:29 DC 08/29/25 20:51 100 MLS/HR Ipratropium Likely 0.5 mg ONCE ONCE NEB 08/29/25 17:30 08/29/25 17:31 DC 08/29/25 17:46 0.5 MG Methylprednisolone Sodium Succinate 125 mg ONCE ONCE IV 08/29/25 17:30 08/29/25 17:31 DC 08/29/25 18:31 125 MG Assessment/Plan Assessment/Plan COPD with acute exacerbation Hypertensive urgency Urinary tract infection Leukocytosis, unspecified Generalized weakness Plan 1. Admit to telemetry unit 2. Breathing treatment 3. Pain control management 4. IV antibiotic management 5. Management of fluids and electrolytes 6. Consultation for hospitalist 7. Diagnostic test chest x-ray 8. DVT prophylaxis on SCDs 9. Repeat labs CBC, CMP in a.m. 10. Home medication reviewed and reconciled 11. Continue with current medical management 12. Treatment plan discussed with patient and RN. Patient verbalized un derstanding. Plan discussed with: Patient, Other (RN) My Orders Orders - EDIE YOUNG DNP Procedure Category Date Status Time Albuterol Medneb PHA 08/29/25 In Process (Ventolin Medneb) 20:00 Ipratropium Medneb PHA 08/29/25 In Process (Atrovent Medneb) 20:00 Clonidine Hcl Tablet PHA 08/29/25 In Process (Catapres Tablet) 20:00 Famotidine Injection PHA 08/29/25 In Process (Pepcid Injection) 22:00 Methylprednisolone PHA 08/29/25 In Process Sod Succ (Solu Medrol 00:00 Ceftriaxone 1gm/50ml PHA 08/30/25 In Process (Rocephin) 09:00 Allergies JERALD 08/29/25 In Process 19:58 Code Status CODE 08/29/25 Transmitted 19:58 Sodium Chloride Lock PHA 08/29/25 In Process (Saline Lock Ns) 22:00 Oxygen Per Hour RT 08/29/25 Transmitted 19:58 Ondansetron Hcl PHA 08/29/25 In Process (Zofran) 20:00 Docusate Sodium PHA 08/29/25 In Process Capsule (Colace 20:00 Complete Blood Count LAB 08/30/25 Verified 04:00 Comprehensive LAB 08/30/25 Verified Metabolic Panel 04:00 Cardiac DIET 08/30/25 Transmitted Diet-2gna,Lofat,Lochol Breakfast Condition: Serious JERALD 08/29/25 In Process 19:58 Acetaminophen Tablet PHA 08/29/25 In Process (Tylenol Tablet) 20:00 Bedrest With Bathroom JERALD 08/29/25 In Process Privileg 19:58 Sequential JERALD 08/29/25 In Process Compression Device Problem List: (1) COPD with acute exacerbation (2) Hypertensive urgency (3) Urinary tract infection (4) Leukocytosis, unspecified (5) Generalized weakness Date of Service: Aug 29, 2025 Billing Provider: EDIE YOUNG DNP Common Visit Codes: [id number] INP/OBS CARE (HIGH) EDIE YOUNG DNP Aug 29, 2025 21:34
[2025-08-29] MEDS ORDERED: MORPHINE SULFATE INJ 2 MG/ml SYRG IV PRN (21:45)
[2025-08-29] MEDS ORDERED: NITROGLYCERIN 0.4 MG SL TAB SL PRN (21:45)
[2025-08-29] MEDS: FAMOTIDINE (10MG/ML) 2ML VL IV SCH (22:18)
[2025-08-29] MEDS: SODIUM CHLOR 0.9% PF (SALINE LOCK) 10ML VIAL/SYR IV SCH (22:18)
[2025-08-30] VITALS (11 sets, daily range): BP systolic 106–141; BP diastolic 63–91; PULSE 90–104; RESP 16–18; TEMP 98–99; O2SAT 91–99
[2025-08-30 04:46] LABS: Hematocrit 41.6 % (36.0-46.0); Hemoglobin 13.9 g/dL (12.2-16.2); Mean Corpuscular Hemoglobin 28.8 pg (28.0-32.0); Mean Corpuscular Volume 86.3 fL (80.0-100.0); Nucleated Red Blood Cells % 0.0 %
[2025-08-30 05:04] LABS: Alanine Aminotransferase 10 U/L (7-40); Albumin 4.3 g/dL (3.2-4.8); Alkaline Phosphatase 115 U/L (46-116); Anion Gap 9 (5-15); BUN/Creatinine Ratio 16.7 (10.0-20.0); Bilirubin, Total 0.3 mg/dL (0.2-1.0); Blood Urea Nitrogen 12 mg/dL (9-23); Calcium 9.5 mg/dL (8.7-10.4); Carbon Dioxide 24 mmol/L (20-31); Chloride 106 mmol/L (98-107); Glucose 185 mg/dL (74-106); Potassium 3.9 mmol/L (3.5-5.1); Sodium 139 mmol/L (136-145); Total Protein 7.3 g/dL (5.7-8.2)
[2025-08-30] MEDS: IPRATROPIUM BROM 0.5 MG/2.5ML INH SOL NEB PRN (07:20)
[2025-08-30] MEDS: ALBUTEROL SULF 2.5 MG/0.5ML(0.5%) NEB SOLN NEB PRN (07:20)
[2025-08-30] MEDS ORDERED: ESCI1TAB37 PO (13:42)
[2025-08-30] MEDS ORDERED: HYDR-3682 PO (13:42)
[2025-08-30] MEDS ORDERED: TRAM50TA2 PO (13:42)
[2025-08-30] MEDS ORDERED: DEXA2TAB PO (13:42)
[2025-08-30] MEDS ORDERED: FLUT1AER17 INH (13:42)
[2025-08-30] MEDS ORDERED: QUET200T45 PO (13:42)
[2025-08-30] MEDS ORDERED: IBUP-1455 PO (13:42)
[2025-08-30] MEDS: IBUPROFEN 800 MG TAB PO PRN (15:38)
[2025-08-30] MEDS ORDERED: LEVO-177 PO (19:22)
[2025-08-30] MEDS ORDERED: ALBUAER3 IN (19:22)
[2025-08-30] MEDS ORDERED: AMIT-256 PO (19:22)
[2025-08-30] MEDS ORDERED: ALBU108A5 INH (19:22)
[2025-08-30] MEDS ORDERED: OMEP-445 PO (19:22)
[2025-08-30] MEDS ORDERED: LEVO75TA6 PO (19:22)
[2025-08-30] MEDS: DOXYCYCLINE 100 MG TAB/CAP PO SCH (21:33)
[2025-08-31] VITALS (9 sets, daily range): BP systolic 118–140; BP diastolic 50–79; PULSE 77–95; RESP 16–98; TEMP 98–98.2; O2SAT 90–96
[2025-08-31] MEDS ORDERED: IPRA0.00 IN (11:25)
[2025-08-31] MEDS ORDERED: METH4PAK PO (11:25)
[2025-08-31] MEDS ORDERED: AZITTAB PO (11:25)
--- NOTE | 2025-08-31 11:27 | DVHDS2 ---
Discharge Summary Date of Admission Aug 29, 2025 at 21:32 Date of Discharge: Aug 31, 2025 Labs/Diagnostic Data: Laboratory Results Test 08/30/25 04:15 08/29/25 19:24 08/29/25 16:26 08/29/25 16:23 White Blood Count 9.4 10^3/uL (4.4-10.8) Red Blood Count 4.82 10^6/uL (4.0-5.20) Hemoglobin 13.9 g/dL (12.2-16.2) Hematocrit 41.6 % (36.0-46.0) Mean Corpuscular Volume 86.3 fL (80.0-100.0) Mean Corpuscular Hemoglobin 28.8 pg (28.0-32.0) Mean Corpuscular Hemoglobin Concent 33.4 g/dL (32.0-36.0) Red Cell Distribution Width 14.5 % (11.8-14.3) Platelet Count 342 10^3/uL (140-450) Mean Platelet Volume 7.1 fL (6.9-10.8) Neutrophils (%) (Auto) 89.8 % (37.0-80.0) Lymphocytes (%) (Auto) 9.2 % (10.0-50.0) Monocytes (%) (Auto) 0.6 % (0.0-12.0) Eosinophils (%) (Auto) 0.0 % (0.0-7.0) Basophils (%) (Auto) 0.4 % (0.0-2.0) Neutrophils # (Auto) 8.4 10 ^3/uL (1.6-8.6) Lymphocytes # (Auto) 0.9 10 ^3/uL (0.4-5.4) Monocytes # (Auto) 0.1 10 ^3/uL (0-1.3) Eosinophils # (Auto) 0 10 ^3/uL (0-0.8) Basophils # (Auto) 0 10 ^3/uL (0-0.2) Nucleated Red Blood Cells 0.0 % Sodium Level 139 mmol/L (136-145) Potassium Level 3.9 mmol/L (3.5-5.1) Chloride Level 106 mmol/L (98-107) Carbon Dioxide Level 24 mmol/L (20-31) Anion Gap 9 (5-15) Blood Urea Nitrogen 12 mg/dL (9-23) Creatinine 0.72 mg/dL (0.550-1.02) Glomerular Filtration Rate Calc 93 mL/min (>90) BUN/Creatinine Ratio 16.7 (10.0-20.0) Serum Glucose 185 mg/dL (74-106) Calcium Level 9.5 mg/dL (8.7-10.4) Total Bilirubin 0.3 mg/dL (0.2-1.0) Aspartate Amino Transferase (AST) 14 U/L (13-40) Alanine Aminotransferase (ALT) 10 U/L (7-40) Alkaline Phosphatase 115 U/L (46-116) Total Protein 7.3 g/dL (5.7-8.2) Albumin 4.3 g/dL (3.2-4.8) Troponin I High Sensitivity < 3 ng/L (</=34) B-Type Natriuretic Peptide 8.03 pg/mL (0-100) Urine Color Colorless (Yellow) Urine Clarity Clear (Clear) Urine pH 6.0 (5.0-9.0) Urine Specific [place] 1.005 (1.001-1.035) Urine Protein Negative (Negative) Urine Ketones Negative (Negative) Urine Blood Negative /uL (Negative) Urine Nitrite Negative (Negative) Urine Bilirubin Negative (Negative) Urine Urobilinogen Normal mg/dL (Negative) Urine Leukocyte Esterase 1+ /uL (Negative) Urine RBC <1 /hpf (0 - 4) Urine Microscopic WBC 4 /HPF (0-5) Urine Squamous Epithelial Cells Few /hpf (<5) Urine Bacteria None seen /hpf (None Seen) Urine Glucose Normal mg/dL (Normal) Other Laboratory Tests 08/30/25 04:15 Brief Hx & Hospital Course: Final diagnoses: Acute hypoxic respiratory failure COPD exacerbation Hypertension No UTI 65-year-old female who was admitted for upper respiratory infection and cough and shortness of breaths She was diagnosed with COPD She was given IV antibiotics and IV steroids and oxygen and med neb treatments She is doing well today She is on room air The patient is stable for discharge Give prednisone and Z-Fito and DuoNeb Follow up with the primary care physician as soon as possible Pulse ox saturation on room air is about 94%, she does not qualify for home O2 Condition at Discharge: Stable Final Diagnosis/Problems List COPD exacerbation Discharge Disposition: Home SNF Discharge Will this Physician continue t: No Discharge Instruct/Medications Diet: Cardiac 2g Na,low cholest Activity: No Restrictions, As Tolerated Follow Up/Referral: PCP as soon as possible Medications: Z-Fito Prednisone DuoNeb Scheduled Azithromycin (Zithromax Z-Fito), 250 MG PO UD Escitalopram Oxalate (Escitalopram Oxalate), 1 TAB PO QAM, (Reported) Kdvjrmlakfl-Sxwvzbokubpg-Ijshj (Trelegy Ellipta 200-62.5-25 Mcg/INH), 1 PUFF INH DAILY, (Reported) Hydroxyzine Hcl (Hydroxyzine Hcl), 1 TAB PO TID, (Reported) Levothyroxine Sodium (Levothyroxine Sodium), 1 TAB PO QAM, (Reported) Levothyroxine Sodium (Levothyroxine Sodium), 1 TAB PO DAILY, (Reported) Lidocaine (Lidoderm 5% Topical Patch), 1 PATCH TOP DAILY Methylprednisolone (Medrol Dosepak), 4 MG PO UD Omeprazole Magnesium (Acid Risk Specialist), 1 TAB PO DAILY, (Reported) Scheduled PRN Albuterol Sulfate (Albuterol Sulfate Hfa), 2 PUFF INH Q6HPRN PRN for wheezing, (Reported) Albuterol Sulfate (Ventolin Mdi), 90 MCG IN Q6HP PRN for SHORTNESS OF BREATH, (Reported) Ibuprofen Micronized (Ibuprofen), 1 TAB PO TID PRN for PAIN SCALE 1 THRU 6, (Reported) Ipratropium-Albuterol (Ipratropium Peterson/Albut), 1 RAÚL IN Q6HP PRN Tramadol Hcl (Tramadol Hcl), 1 TAB PO Q8HPRN PRN for PAIN SCALE 1 THRU 6, (Reported) Miscellaneous Medications Amitriptyline HCl (Amitriptyline Hydrochlori), 1 TAB PO, (Reported) Quetiapine Fumerate (Quetiapine Fumarate), 1 TAB PO, (Reported) Discharge Statement: "Patient was advised to return to the ER or call 911 if any headaches, dizziness, shortness of breath, chest pain, abdominal pain, bleeding, fevers, or worsening of medical condition. Patient was counseled about treatment plan, medications, possible side effects, patientverbalized understanding. All questions were answered to the best of my ability. This discharge took greater then 30 minutes in planning, reviewing documentation, counseling the patient, and discussing with other team members." ASSESSMENT ASSESSMENT Assessment COPD exacerbation Date of Service: Aug 31, 2025 Billing Provider: JULIO C DOAN MD Common Visit Codes: NOT BILLABLE JULIO C DOAN MD Aug 31, 2025 11:27
== END 2025-08-31 17:58 | disposition home or self-care (01) | DRG 189 ==
LOC: ER 15:12 → OVERFLOW 21:32 → TELE-CENTR 08-30 22:35
PROVIDERS: ADMIT Nurse Practitioner Family; ATTEND Nurse Practitioner Family
DX: J96.01 Acute respiratory failure with hypoxia (principal); J44.1 Chronic obstructive pulmonary disease with (acute) exacerbation; I10 Essential (primary) hypertension; J06.9 Acute upper respiratory infection, unspecified; F17.210 Nicotine dependence, cigarettes, uncomplicated; F41.9 Anxiety disorder, unspecified; Z88.5 Allergy status to narcotic agent; Z85.89 Personal history of malignant neoplasm of other organs and systems
CPT/HCPCS: 36415; 71045; 80048; 80053; 81001; 83880; 84484; 85025; 93005; 94640; 99291; 99292; G0378; J3490